=== PATIENT | female | born 1960 | race Caucasian/White ===

== ENCOUNTER 2022-02-16 11:04 | Day surgery (SDC) | payer MEDICAID ==
[~2022-02-16] VITALS: Ht 160 cm; Wt 105.4 kg
[2022-02-16] MEDS ORDERED: normal saline 1000ml 1,000 ML IV PRN (11:30)
[2022-02-16 12:00] VITALS: BP 123/61
[2022-02-16] MEDS ORDERED: heparin sodium, porcine/PF 100unit/ml 5ML syringe ONE (12:10)
[2022-02-16] MEDS ORDERED: fentaNYL/PF 50MCG/1 ML 2ML syringe ONE (12:11)
[2022-02-16] MEDS ORDERED: LIDOcaine 1%/PF 5ML 10 MG/ML VIAL ONE (12:11)
[2022-02-16] MEDS ORDERED: midazolam 1 mg/ML 2ml injection ONE (12:11)
[2022-02-16] MEDS ORDERED: DILT120C91 PO (12:17)
[2022-02-16] MEDS ORDERED: UMEC1DIS INH (12:17)
[2022-02-16] MEDS ORDERED: METF-437 PO (12:17)
[2022-02-16] MEDS ORDERED: FLUT100D (12:17)
[2022-02-16] MEDS ORDERED: IPRA4AER INH (12:17)
[2022-02-16] MEDS ORDERED: IPRA3AMP31 NEB (12:17)
[2022-02-16] MEDS ORDERED: ASPI-1265 PO (12:17)
[2022-02-16] MEDS ORDERED: ALBU90AE2 (12:17)
[2022-02-16] MEDS ORDERED: CARV12.545 PO (12:17)
[2022-02-16] MEDS ORDERED: CHOL200042 PO (12:17)
[2022-02-16 13:05] VITALS: BP 133/70
[2022-02-16 13:16] VITALS: BP 123/68
[2022-02-16 13:49] VITALS: BP 110/44
== END 2022-02-16 14:00 | disposition home or self-care (01) ==
LOC: SSTAY O 11:04
PROVIDERS: ATTEND Radiology Vascular & Interventional Radiology
DX: C54.8 Malignant neoplasm of overlapping sites of corpus uteri (principal); J44.9 Chronic obstructive pulmonary disease, unspecified; E11.9 Type 2 diabetes mellitus without complications; F41.0 Panic disorder [episodic paroxysmal anxiety]; E66.9 Obesity, unspecified; Z68.41 Body mass index [BMI] 40.0-44.9, adult; F17.210 Nicotine dependence, cigarettes, uncomplicated; Z86.19 Personal history of other infectious and parasitic diseases; Z79.82 Long term (current) use of aspirin; Z79.899 Other long term (current) drug therapy
CPT/HCPCS: 36561; 76937; 77001; 82948; 99152; C1769; C1788; C1894; J1642; J2250; J3010; J3490; J7030; 99153; A4615; A4620